=== PATIENT | female | born 1985 | race Caucasian/White ===

== ENCOUNTER 2020-11-18 20:08 | Emergency (ER) | payer MEDICAID, SELFPAY ==
[2020-11-18 20:09] VITALS: BP 128/85; PULSE 65; RESP 15; TEMP 36.4; O2SAT 97; BMI 27.4
[2020-11-18 20:10] VITALS: BP 128/85; PULSE 65; RESP 15; TEMP 36.4; O2SAT 97
--- NOTE | 2020-11-18 20:18 | EDS_ITS ---
HPI HPI - Female History of Present Illness Chief Complaint: Complaint Narrative Narrative: 35-year-old female presenting with dysuria and urinary frequency for about a week. She states she has some nausea that is associated. Patient states that she has a distant history of UTI. She has no concern for STD. She has no vaginal complaints. She does not have any flank pain. Patient denies fever or chills. PFSH PFSH Home Medications buspirone 30 mg PO DAILY 11/18/20 [History Last Taken Unknown] famotidine 40 mg PO DAILY 11/18/20 [History Last Taken Unknown] nitrofurantoin monohyd/m-cryst [Macrobid] 100 mg PO Q12H 7 Days #14 cap 11/18/20 [Rx Last Taken Unknown] ondansetron HCl [Zofran] 4 mg PO Q8H #14 tab 11/18/20 [Rx Last Taken Unknown] phenazopyridine [Pyridium] 200 mg PO BID PRN PRN #10 tab 11/18/20 [Rx Last Taken Unknown] Allergy/AdvReac Type Severity Reaction Status Date / Time Penicillins [PCN] Allergy Hives Verified 11/18/20 20:11 Social History Smoking Status: Smoker, status unknown ROS ROS ED Constitutional Constitutional ED: Denies chills, fever(s) or sweats Eyes Eyes: Denies blurry vision or change in vision ENT ENT ED: Denies ear pain, rhinorrhea or sore throat Cardiovascular Cardiovascular: Denies chest pain, palpitations or racing heartbeat Respiratory/Chest Respiratory/Chest: Denies cough, dyspnea or sputum Gastrointestinal Gastrointestinal: Denies abdominal pain, constipation, diarrhea or vomiting Genitourinary Genitourinary ED: Reports dysuria and urinary frequency; Denies hematuria Musculoskeletal Musculoskeletal: Denies arthralgias, myalgias or neck pain Integumentary Denies abscess, Abrasions or rash Neurologic Neurologic: Denies headache(s), paresthesias or weakness Psychiatric Psychiatric: Denies anxiety, depression, suicidal ideation or suicidal thoughts Endocrine Endocrinology: Denies polydipsia or polyuria EXAM Physical Exam Const Vital Signs: 11/18/20 20:09 11/18/20 20:10 Temperature 97.6 F L 97.6 F L Temperature Source Temporal Temporal Pulse Rate 65 65 Respiratory Rate 15 15 Blood Pressure 128/85 H 128/85 H Blood Pressure Mean 99 99 Pulse Ox 97 97 Oxygen Delivery Method Room Air Room Air Positive well nourished General Appearance ED: NAD HEENT Reports moist mucous membranes Negative for trauma Eyes PERRL and EOMs intact bilaterally Resp normal respiratory effort and clear to auscultation bilaterally Cardio regular rate and regular rhythm GI normal to inspection, nondistended, normoactive bowel sounds no CVA tenderness Neuro oriented x3 Sensorium / Orientation: alert and oriented to person Psych mental status grossly normal Skin no rashes or lesions noted and no wounds MDM MDM MDM Narrative Medical decision making narrative: Patient presented with dysuria and urinary frequency. Patient found to have urinary tract infection on urinalysis. Patient was given Macrobid and Pyridium in the ED. She is given a prescription for this for home. She does not have any nausea currently but I did give her a prescription for Zofran as needed. Patient is amenable to this. She states she is going to follow-up with [facility] as she is already try to establish there. Patient stable discharge home at this time. Impression: 1. UTI Lab Data Attestation: I reviewed the patient's lab results. Labs: Laboratory Results - last 24 hr 11/18/20 20:27 Urine Color Yellow Urine Clarity Cloudy Urine pH 6.5 Ur Specific [place] 1.020 Urine Protein 30 H Urine Glucose (UA) Normal Urine Ketones 5 H Urine Occult Blood 25 H Urine Nitrite Positive H Urine Bilirubin Negative Urine Urobilinogen 4 H Ur Leukocyte Esterase 500 H Urine RBC 0-5 SEEN Urine WBC 50-100 SEEN Ur Squamous Epith Cells 5-10 SEEN Urine Bacteria 3+ Urine Mucus 0 SEEN Urine Test Negative Discharge Plan Triage Chief Complaint: Complaint ED Provider: Kofi Dumont Dx/Rx/DC Orders Instructions: ED CYSTITIS Female Adult Prescriptions: New nitrofurantoin monohyd/m-cryst [Macrobid] 100 mg capsule 100 mg PO Q12H 7 Days Qty: 14 RF: 0 ondansetron HCl [Zofran] 4 mg tablet 4 mg PO Q8H Qty: 14 RF: 0 phenazopyridine [Pyridium] 200 mg tablet 200 mg PO BID PRN PRN (Reason: Pain) Qty: 10 RF: 0 No Action famotidine 40 mg tablet 40 mg PO DAILY RF: 0 buspirone 30 mg tablet 30 mg PO DAILY RF: 0 Primary Care Provider: Care Physician,No Primary Referrals: Care Physician,No Primary [Primary Care Provider] - Disposition Disposition: Home, Self Care
[2020-11-18 20:40] LABS: Mucous, Urine 0 SEEN /hpf (<or=2+)
[2020-11-18 20:43] LABS: Color, Urine Yellow (Yellow); Glucose, Dipstick Normal (Normal); Ketone-Dipstick 5 mg/dl (Negative); Leukocyte Esterase-Dipstick 500 /ul (Negative); Nitrite-Dipstick Positive (Negative); Occult Blood-Urine 25 /ul (Negative); Protein-Dipstick 30 mg/dl (Negative); Urine Bilirubin Dipstick Negative (Negative); Urine Clarity Cloudy (Clear); Urine Urobilinogen 4 mg/dl (Normal); Urine pH 6.5 (5.0 - 8.0)
[2020-11-18 20:55] LABS: Bacteria 3+ /hpf (None Seen); Red Blood Cells-Urine 0-5 SEEN /hpf (0-5); Squamous Epithelial Cells - UA 5-10 SEEN /hpf (5-10); White Blood Cells 50-100 SEEN /hpf (0-5)
[2020-11-18 20:56] LABS: Internal QC Validated? YES +Cl - CLEAR BKGD; Pregnancy, Urine Negative Negative
[2020-11-18] MEDS: Phenazopyridine 95 MG Tablet 190 MG PO (21:01)
[2020-11-18] MEDS: Nitrofurantoin Macrocrystals 100 MG Capsule PO (21:02)
== END 2020-11-18 21:33 | disposition home or self-care (01) ==
PROVIDERS: Emergency Provider Student in an Organized Health Care Education/Training Program
DX: N39.0 Urinary tract infection, site not specified (principal); F17.200 Nicotine dependence, unspecified, uncomplicated; Z79.899 Other long term (current) drug therapy; Z87.440 Personal history of urinary (tract) infections
CPT/HCPCS: 81001; 81025; 87086; 87088; 87186; 99283

== ENCOUNTER 2022-09-30 12:04 | Inpatient (IN) | payer MEDICAID, SELFPAY ==
[2022-09-30 12:04] VITALS: BP 142/106; PULSE 135; RESP 16; TEMP 36.8; O2SAT 100; BMI 16.9
--- NOTE | 2022-09-30 12:45 | PCM.HP.STD ---
HPI - General General Date of Admission: 09/30/22 HPI Narrative DONATO BREEN, is a 37 F who presents to the hospital requesting detox from opiates and crack, her last fentanyl use was last evening. She generally injects. It does not appear that she has any infection and track castro, lab work currently in the ER is pending. Has gone through detox before but never at this facility. She states that she generally injects about 5 g of fentanyl [facility] Medical History (Updated 09/30/22 @ 14:56 by Jennifer Nichols) Anxiety Bipolar disorder Depression Hepatitis Seizure Seizures Home Medications buspirone 30 mg tablet 60 mg PO BID depression 09/30/22 [History Last Taken Unknown] hydroxyzine pamoate 50 mg capsule 100 mg PO Q6H PRN PRN Anxiety 09/30/22 [History Last Taken Unknown] lamotrigine 25 mg tablet 25 mg PO DAILY seizures 09/30/22 [History Last Taken Unknown] olanzapine 5 mg tablet 5 mg PO QHS depression 09/30/22 [History Last Taken Unknown] [id number]-FA 1 mg tablet 1 tab PO DAILY vitamin 09/30/22 [History Last Taken Unknown] topiramate 100 mg tablet 100 mg PO BID seizure 09/30/22 [History Last Taken Unknown] Allergy/AdvReac Type Severity Reaction Status Date / Time buprenorphine [From Suboxone] Allergy Hives Verified 09/30/22 12:06 naloxone [From Suboxone] Allergy Hives Verified 09/30/22 12:06 Penicillins [PCN] Allergy Hives Verified 09/30/22 12:06 Surgical History H/O tubal ligation Social History Smoking Status: Current every day smoker tobacco type: e-cigarettes ROS Constitutional Constitutional: Denies chills, fatigue, fever(s) or malaise Eyes Eyes: Denies blurry vision ENT HEENT: Denies headache(s) or nasal discharge Cardiovascular Cardiovascular: Denies chest pain, dyspnea on exertion or syncope Respiratory/Chest Respiratory/Chest: Denies cough, shortness of breath at rest or shortness of breath with exertion Gastrointestinal Gastrointestinal: Reports nausea; Denies constipation, diarrhea or vomiting Genitourinary Genitourinary: Denies dysuria Neurologic Neurologic: Denies focal weakness, numbness or tremor(s) Psychiatric Psychiatric: Reports anxiety; Denies depression Vital Signs Vital Signs Vital Signs: 09/30/22 12:04 Temperature 98.2 F Temperature Source Temporal Pulse Rate 135 H Respiratory Rate 16 Blood Pressure 142/106 H Blood Pressure Mean 118 Pulse Ox 100 Oxygen Delivery Method Room Air Weight Weight: 105 lb 3 oz Body Mass Index (BMI) 16.9 Physical Exam Narrative General: Alert, Oriented x3, Cooperative, No apparent distress HEENT: Atraumatic, PERRLA, EOMI, Normocephalic, cachectic Oral: Moist Mucosa Neck: Supple, No JVD Lungs: Clear to auscultation, Normal air movement, No rhonchi, No wheeze, No rales Cardiovascular: Regular rate, Regular Rhythm, Normal S1, Normal S2, No murmurs Abdomen: Soft, Non Tender, Non-Distended, No Hepato-splenomegaly Extremities: No edema, Capillary Refill Less than 3 Seconds Skin: Multiple noninfected track castro bilateral upper extremities Musculoskeletal: No Tenderness to Palpation of Joints or Extremities Neurological: Cranial nerves II-XII grossly intact, Motor Exam 5/5 strength throughout, Sensory exam intact to light touch and pain Psych/Mental Status: Anxious, restless Results Lab / Micro Data Result Diagrams: 09/30/22 14:04 09/30/22 14:04 Assessment & Plan Assessment/Plan (1) Opiate withdrawal: (2) Substance abuse: PLAN: Plan 1. Detox from opiates/seizure disorder/anxiety/depression ? Opiate withdrawal protocol ? Continue with her home seizure medications ? Continue with her mental health medications ? Have her follow-up with [facility] DVT: Ambulation 60 minutes was spent on direct patient care as well as chart review and collaboration with colleagues Charges/Coding Visit Charges Inpatient E&M: 16537 Init Hosp L2
[2022-09-30 13:43] LABS: Mucous, Urine 0 SEEN /hpf (<or=2+)
--- NOTE | 2022-09-30 13:48 | EX.ED.SAOD ---
HPI History of Present Illness Chief Complaint: Substance Abuse Informant: patient Onset/Context/Timing Onset: Today Context: Gradual Onset Timing: Continuous Worsened by: Nothing Relieved by: Nothing Associated Symptoms Associated Symptoms: Negative for vomiting*, diarrhea*, fever*, rash*, seizure, tremor, palpatations, change in mental status, trauma, suicidal ideation or homicidal ideation Narrative Narrative: Patient presents requesting detox from fentanyl and crack cocaine. Patient states her last use was last night. Patient states she uses approximately 5 g of fentanyl per day. Patient states she has been through detox at a different facility in April but started using again shortly after she was discharged from that facility. Patient denies any fevers or chills. Patient denies any nausea or vomiting. Patient denies any seizures or tremors. Patient denies any suicidal or homicidal ideations. [facility] Medical History Seizure Home Medications NK 09/30/22 [History Last Taken Unknown] Allergy/AdvReac Type Severity Reaction Status Date / Time buprenorphine [From Suboxone] Allergy Hives Verified 09/30/22 12:06 naloxone [From Suboxone] Allergy Hives Verified 09/30/22 12:06 Penicillins [PCN] Allergy Hives Verified 09/30/22 12:06 Surgical History H/O tubal ligation Social History Smoking Status: Current every day smoker tobacco type: e-cigarettes ROS ROS ED Constitutional Constitutional ED: Reports sweats; Denies chills or fever(s) Eyes Eyes: Denies blurry vision or change in vision ENT ENT ED: Denies rhinorrhea or sore throat Cardiovascular Cardiovascular: Denies chest pain or palpitations Respiratory/Chest Respiratory/Chest: Denies cough or dyspnea Gastrointestinal Gastrointestinal: Reports nausea; Denies vomiting Genitourinary Genitourinary ED: Denies dysuria or hematuria Musculoskeletal Musculoskeletal: Reports back pain; Denies neck pain Integumentary Denies abscess or rash Neurologic Neurologic: Denies headache(s) or weakness Allergic/Immunologic Allergic/Immunologic ED: Denies mouth swelling or urticaria EXAM Physical Exam Const Vital Signs: 06/09/23 12:04 Temperature 98.2 F Temperature Source Temporal Pulse Rate 135 H Respiratory Rate 16 Blood Pressure 142/106 H Blood Pressure Mean 118 Pulse Ox 100 Oxygen Delivery Method Room Air Positive well nourished and well developed General Appearance ED: well developed HEENT Reports moist mucous membranes Neck supple and no JVD Resp normal respiratory effort and clear to auscultation bilaterally Cardio regular rate, regular rhythm and no murmurs GI normal to inspection, nondistended, normoactive bowel sounds and non-tender Palpation: soft Extremity normal to inspection General Extremety ED: Negative for edema or tenderness General Extremity: Negative for edema Neuro oriented x3, CN's II-XII intact bilaterally and no sensory deficits noted Sensorium / Orientation: alert Motor Exam: strength 5/5 throughout Psych mental status grossly normal Skin Skin Narrative: There are multiple track castro on the forearms and antecubital areas bilaterally. There is some mild erythema. There is no evidence of any abscess. There is no discharge or drainage. MDM MDM MDM Narrative Medical decision making narrative: Patient was advised of the need for hospitalization for detox. Patient is agreeable with this. Case was discussed with the hospitalist. He will admit the patient to his service. Basic labs will be obtained for medical clearance. CBC will be obtained to assess for leukocytosis and anemia. Basic metabolic profile will be obtained to assess for electrolyte abnormality and renal function. Urine tox screen will be obtained to assess for substance abuse. Serum alcohol level will be obtained to assess for alcohol intoxication. Serum hCG will be obtained to assess for . Discharge Plan Triage Chief Complaint: Substance Abuse ED Provider: Miko Leblanc Dx/Rx/DC Orders Clinical Impression: Opiate withdrawal, Substance abuse Primary Care Provider: Care Physician,No Primary Disposition Disposition: Acute Care Hospital [facility]
[2022-09-30 13:57] LABS: Internal QC Validated? YES +Cl - CLEAR BKGD; Pregnancy, Urine Negative Negative
[2022-09-30 13:58] LABS: Color, Urine Yellow (Yellow); Glucose, Dipstick Normal (Normal); Ketone-Dipstick 5 mg/dl (Negative); Leukocyte Esterase-Dipstick 500 /ul (Negative); Nitrite-Dipstick Negative (Negative); Occult Blood-Urine 10 /ul (Negative); Protein-Dipstick 30 mg/dl (Negative); Urine Bilirubin Dipstick Negative (Negative); Urine Clarity Clear (Clear); Urine Urobilinogen 1 mg/dl (Normal); Urine pH 6.5 (5.0 - 8.0)
[2022-09-30 13:59] LABS: Bacteria 3+ /hpf (None Seen); Red Blood Cells-Urine 0-5 SEEN /hpf (0-5); Squamous Epithelial Cells - UA 5-10 SEEN /hpf (5-10); White Blood Cells 50-100 SEEN /hpf (0-5)
[2022-09-30 14:06] LABS: Amphetamine Urine VISTA NEGATIVE (<1000 ng/mL); Barbiturate Urine VISTA NEGATIVE (< 200 ng/mL); Benzodiazepine Urine VISTA NEGATIVE (< 200 ng/mL); Cocaine Urine VISTA POSITIVE (< 300 ng/mL); Ecstacy Urine VISTA NEGATIVE (< 500 ng/mL); Methadone Urine VISTA POSITIVE (< 300 ng/mL); PCP Urine VISTA NEGATIVE (< 25 ng/mL); THC Urine VISTA NEGATIVE (< 50 ng/mL); Vista UDS pH Range 6
[2022-09-30 14:13] LABS: Absolute Neutrophil Count 4.9 X10^3/uL (2.0-7.7); Basophil# 0.05 X10^3/uL; Basophil% 0.7 % (0-1); Eosinophil# 0.06 X10^3/uL; Eosinophils% 0.8 % (0-5); Hematocrit 37.4 % (37-47); Hemoglobin 12.3 g/dL (12.0-15.0); Lymphocyte % 24.3 % (19-41); Mean Corp Hgb Conc 32.9 g/dL (32-36); Mean Corpuscular Hgb 29.4 pg (27.0-32.0); Mean Corpuscular Volume 89.3 fL (81-99); Mean Platelet Vol. 11.3 fl (6.2-12.0); Monocyte# 0.63 X10^3/uL; Monocyte% 8.5 % (0-10); NRBC Flagged by Analyzer 0 % (0-5); Neutrophil # 4.85 X10^3/uL (2.7-7.7); Neutrophil % 65.6 % (47-70); Platelet Count 165 K/mm3 (150-450); RBC Distribution Width CV 14.5 % (11.6-14.6); RBC Distribution Width SD 46.7 fl (35.1-43.9); Red Blood Count 4.19 M/mm3 (4.2-5.4); White Blood Count 7.4 K/mm3 (4.4-11.0)
[2022-09-30] MEDS: Smz/Tmp Ds Tablet 1 TABLET PO (14:23)
[2022-09-30 14:26] VITALS: BP 123/81; PULSE 98; RESP 18; TEMP 36.7
[2022-09-30 14:31] LABS: Anion Gap 9 (5-15); BUN 16 mg/dL (7-18); BUN/Creat Ratio 19.5 RATIO (10-20); Calcium,Total 8.7 mg/dL (8.5-10.1); Chloride 108 mmol/L (98-107); Creatinine, Serum 0.82 mg/dL (0.55-1.02); EST Glomerular Filtration Rate 83 mL/min (>60); Est Glom Filt Rate - Afr Amer 100 mL/min (>60); Estimated Creatinine Clearance 70.06 ml/min; Glucose 83 mg/dL (74-106); Sodium Level 141 mmol/L (136-145)
[2022-09-30 14:51] VITALS: BMI 17.4
[2022-09-30 14:58] VITALS: BP 125/86; PULSE 70; RESP 16; TEMP 36.7; O2SAT 100
[2022-09-30 15:41] VITALS: BP 125/86; PULSE 70; RESP 16; TEMP 36.7; O2SAT 100
[2022-09-30] MEDS: Buprenorphine HCl 2 MG TAB.SUBL SL (17:18)
[2022-09-30] MEDS: Ondansetron 8 MG Tablet PO (18:54)
[2022-09-30] MEDS: Gabapentin 300 MG Capsule PO (18:54)
[2022-09-30] MEDS: hydrOXYzine PAM 25 MG Capsule 50 MG PO (18:54)
[2022-09-30] MEDS: Methocarbamol 750 MG Tablet 1500 MG PO (20:03)
[2022-09-30] MEDS: Dicyclomine 10 MG Capsule 20 MG PO (20:03)
[2022-09-30] MEDS: cloNIDine HCl 0.1 MG Tablet PO (20:04)
[2022-09-30 20:20] VITALS: BP 138/90; PULSE 81; RESP 18; TEMP 36.6; O2SAT 100
[2022-10-01] MEDS: Topiramate 100 MG Tablet PO ×3 (00:06→21:30)
[2022-10-01] MEDS: traZODone 100 MG Tablet PO (00:06)
[2022-10-01] MEDS: OLANZapine 5 MG/TAB TAB.RAPDIS PO ×2 (00:06→21:30)
[2022-10-01] MEDS: busPIRone 15 MG TABLET 60 MG PO ×3 (00:07→21:30)
[2022-10-01] MEDS: Buprenorphine HCl 2 MG TAB.SUBL SL ×3 (01:44→16:45)
[2022-10-01 05:56] VITALS: BP 144/98; PULSE 65; RESP 16; TEMP 37.2; O2SAT 99
[2022-10-01] MEDS: Methocarbamol 750 MG Tablet 1500 MG PO ×2 (05:59→12:21)
[2022-10-01] MEDS: Dicyclomine 10 MG Capsule 20 MG PO (05:59)
[2022-10-01] MEDS: Gabapentin 300 MG Capsule PO ×2 (06:00→16:45)
[2022-10-01] MEDS: cloNIDine HCl 0.1 MG Tablet PO ×2 (06:00→16:46)
--- NOTE | 2022-10-01 08:56 | CASEMGMT ---
Social Work SW called Treatment Navigator with [facility] to see pt. She does already have a plan to go to [facility] after her admit and discharge from here. WILIAM Shah
[2022-10-01] MEDS: lamoTRIgine 25 MG Tablet PO (08:57)
[2022-10-01 09:01] VITALS: BP 156/92; PULSE 58; PULSE 60; RESP 16; TEMP 37.6; O2SAT 100
--- NOTE | 2022-10-01 09:45 | PN.HOSP_ITS ---
Subjective Subjective Cina score of 8 today, she was fairly agitated overnight but resting comfortably this morning Objective Data Objective Data Vital Signs: Vital Signs Temp Pulse Resp BP Pulse Ox O2 Del Method 99.6 F H 60 16 156/92 H 100 Room Air 10/01/22 09:01 10/01/22 09:01 10/01/22 09:01 10/01/22 09:01 10/01/22 09:01 10/01/22 09:01 Oxygen Delivery Method Room Air Weight: 108 lb Body Mass Index (BMI) 17.4 Intake & Output: Intake and Output for Last 24 Hours 09/30/22 10/01/22 10/02/22 03:59 03:59 03:59 Intake Total 200 / 200 Balance 200 / 200 Medical Nutrition Assessment Dietitian: Malnutrition Criteria Met Start: 09/30/22 15: 43 Freq: Status: Active Protocol: Document 09/30/22 15:43 WINDY (Rec: 09/30/22 15:44 [email or web address] [id number]) Nutrition Malnutrition Evidence of Malnutrition Exists Yes Malnutrition (severe): Social/Behavioral/ Environmental Evidenced By Suboptimal Energy Intake ( Severe),Weight Loss (Severe), Physical Changes (Severe) Clinical Problem Chronic Disease or Condition Related Malnutrition Etiology severe related to drug use/ abuse and inadequate energy intake Signs/Symptoms as evidenced by 30.5% unintended wt loss and po intake <75% of estimated nutritional needs; pt w/ fat/ muscle loss throughout body Status Active Problem Recommendation Dietitian Recommendations/Changes Will continue liberal regular diet d/t signs and symptoms of malnutrition. Will order 8 oz chocolate CIB w/ meals Allow snacks 3x/day as tolerated Monitor for signs/symptoms of refeeding syndrome. Lab / Micro Data Result Diagrams: 09/30/22 14:04 09/30/22 14:04 Labs: Laboratory Results - last 24 hr 09/30/22 13:37: Urine Color Yellow, Urine Clarity Clear, Urine pH 6.5, Ur Spec ific [place] 1.020, Urine Protein 30 H, Urine Glucose (UA) Normal, Urine Ketones 5 H, Urine Occult Blood 10 H, Urine Nitrite Negative, Urine Bilirubin Negative, Urine Urobilinogen 1 H, Ur Leukocyte Esterase 500 H, Urine RBC 0-5 SEEN, Urine WBC 50-100 SEEN, Ur Squamous Epith Cells 5-10 SEEN, Urine Bacteria 3+, Urine Mucus 0 SEEN, Urine Test Negative 09/30/22 13:37: Urine Opiates Screen POSITIVE H, Urine Methadone Screen POSITIVE H, Ur Barbiturates Screen NEGATIVE, Ur Phencyclidine Scrn NEGATIVE, Ur Amp hetamines Screen NEGATIVE, MDMA (Ecstasy) Screen NEGATIVE, U Benzodiazepines Scrn NEGATIVE, Urine Cocaine Screen POSITIVE H, U Cannabinoids Screen NEGATIVE, Ur Drug Screen Comment 09/30/22 14:04: WBC 7.4, RBC 4.19 L, Hgb 12.3, Hct 37.4, MCV 89.3, MCH 29.4, MCHC 32.9, RDW Std Deviation 46.7 H, RDW Coeff of Bg 14.5, Plt Count 165, MPV 11.3, Immature Gran % (Auto) 0.100, Neut % (Auto) 65.6, Lymph % (Auto) 24.3, [place] % (Auto) 8.5, Eos % (Auto) 0.8, Baso % (Auto) 0.7, Absolute Neuts (auto) 4.9, Absolute Lymphs (auto) 1.80, Nucleated RBC % 0 09/30/22 14:04: Sodium 141, Potassium 3.0 L, Chloride 108 H, Carbon Dioxide 24.0, Anion Gap 9, BUN 16, Creatinine 0.82, Estim Creat Clear Calc 70.06, Est GFR (MDRD) Af Amer 100, Est GFR (MDRD) Non-Af 83, BUN/Creatinine Ratio 19.5, Glucose 83, Calcium 8.7 09/30/22 14:04: Ethyl Alcohol 6.0 Micro: Microbiology 09/30/22 13:37 Urine, Clean Catch Urine Culture - Preliminary Gram Positive Cocci Physical Exam Narrative General: Alert, Oriented x3, Cooperative, No apparent distress HEENT: Atraumatic, PERRLA, EOMI, Normocephalic, cachectic Oral: Moist Mucosa Neck: Supple, No JVD Lungs: Clear to auscultation, Normal air movement, No rhonchi, No wheeze, No rales Cardiovascular: Regular rate, Regular Rhythm, Normal S1, Normal S2, No murmurs Abdomen: Soft, Non Tender, Non-Distended, No Hepato-splenomegaly Extremities: No edema, Capillary Refill Less than 3 Seconds Skin: Multiple noninfected track castro bilateral upper extremities Musculoskeletal: No Tenderness to Palpation of Joints or Extremities Neurological: Cranial nerves II-XII grossly intact, Motor Exam 5/5 strength throughout, Sensory exam intact to light touch and pain Psych/Mental Status: Flat affect Assessment & Plan Assessment/Plan (1) Opiate withdrawal: (2) Substance abuse: PLAN: Plan 1. Detox from opiates/seizure disorder/anxiety/depression ? Opiate withdrawal protocol ? Continue with her home seizure medications ? Continue with her mental health medications ? Have her follow-up with [facility] ? We will check HIV and hepatitis panel 2. UA obtained in the ER obtained for possible UTI however she is asymptomatic will await cultures, she was given a single dose of Bactrim DVT: Ambulation Charges/Coding Visit Charges Inpatient E&M: 86612 Subs Hosp L2
[2022-10-01] MEDS: hydrOXYzine PAM 25 MG Capsule 50 MG PO (12:21)
[2022-10-01 12:31] VITALS: BP 136/79; PULSE 53; RESP 16; TEMP 36.8; O2SAT 100
--- NOTE | 2022-10-01 14:44 | ADDICTION ---
Pt was met with to complete ASAM, MT status, AUDIT, DUDIT, D/C Plan, and RAMP assessment. Pt appears to meet ASAM criteria for a 4.0LoC and pt appears to be at extremely high risk of relapse and continued problem potential. Pt reports that she experienced recent trauma of finding her significant other overdosed and on the floor a few months ago. Pt would benefit from following up with a direct admit to 3.5LoC and referral for psychiatric services. Pt reports hx of comorbid anxiety, depression, and PTSD dxs with hx of medication noncompliance d/t BENNY. Pt reports that she is motivated to seek residential tx after detox and she reports current homelessness. Pt is scheduled to admit directly to [facility] upon discharge. [facility] to transport pt to [facility]. Contact Anastasia at [facility] [phone] to schedule direct admit and transport once pt is medically stable to reduce LoC.
[2022-10-01 16:50] VITALS: BP 140/92; PULSE 51; RESP 16; TEMP 37.3; O2SAT 100
[2022-10-01 21:26] VITALS: BP 153/98; PULSE 50; RESP 16; TEMP 37; O2SAT 99
[2022-10-02] MEDS: Buprenorphine HCl 2 MG TAB.SUBL SL ×3 (01:36→16:30)
[2022-10-02] MEDS: Gabapentin 300 MG Capsule PO ×3 (06:17→20:27)
[2022-10-02] MEDS: cloNIDine HCl 0.1 MG Tablet PO ×3 (06:17→20:27)
[2022-10-02] MEDS: Methocarbamol 750 MG Tablet 1500 MG PO ×3 (06:17→20:27)
[2022-10-02 06:46] VITALS: BP 161/106; PULSE 54; RESP 16; TEMP 36.8; O2SAT 98
[2022-10-02] MEDS: lamoTRIgine 25 MG Tablet PO (09:06)
[2022-10-02] MEDS: busPIRone 15 MG TABLET 60 MG PO ×2 (09:07→20:25)
[2022-10-02] MEDS: Topiramate 100 MG Tablet PO ×2 (09:08→20:25)
--- NOTE | 2022-10-02 09:33 | PCM.PN.HOSP ---
Subjective Subjective No issues overnight, Cina score of 3 Objective Data Objective Data Vital Signs: Vital Signs Temp Pulse Resp BP Pulse Ox O2 Del Method 98.2 F 54 L 16 161/106 H 98 Room Air 10/02/22 06:46 10/02/22 06:46 10/02/22 06:46 10/02/22 06:46 10/02/22 06:46 10/02/22 06:46 Oxygen Delivery Method Room Air Weight: 108 lb Body Mass Index (BMI) 17.4 Intake & Output: Intake and Output for Last 24 Hours 10/01/22 10/02/22 10/03/22 03:59 03:59 03:59 Intake Total 200 / 200 1500 / 1500 Balance 200 / 200 1500 / 1500 Medical Nutrition Assessment Dietitian: Malnutrition Criteria Met Start: 09/30/22 15:43 Freq: Status: Active Protocol: Document 09/30/22 15:43 WINDY (Rec: 09/30/22 15:44 [email or web address] [id number]) Nutrition Malnutrition Evidence of Malnutrition Exists Yes Malnutrition (severe): Social/Behavioral/ Environmental Evidenced By Suboptimal Energy Intake ( Severe),Weight Loss (Severe), Physical Changes (Severe) Clinical Problem Chronic Disease or Condition Related Malnutrition Etiology severe related to drug use/ abuse and inadequate energy intake Signs/Symptoms as evidenced by 30.5% unintended wt loss and po intake <75% of estimated nutritional needs; pt w/ fat/ muscle loss throughout body Status Active Problem Recommendation Dietitian Recommendations/Changes Will continue liberal regular diet d/t signs and symptoms of malnutrition. Will order 8 oz chocolate CIB w/ meals Allow snacks 3x/day as tolerated Monitor for signs/symptoms of refeeding syndrome. Lab / Micro Data Result Diagrams: 09/30/22 14:04 09/30/22 14:04 Micro: Microbiology 09/30/22 13:37 Urine, Clean Catch Urine Culture - Final Staphylococcus epidermidis Physical Exam Narrative General: Alert, Oriented x3, Cooperative, No apparent distress HEENT: Atraumatic, PERRLA, EOMI, Normocephalic, cachectic Oral: Moist Mucosa Neck: Supple, No JVD Lungs: Clear to auscultation, Normal air movement, No rhonchi, No wheeze, No rales Cardiovascular: Regular rate, Regular Rhythm, Normal S1, Normal S2, No murmurs Abdomen: Soft, Non Tender, Non-Distended, No Hepato-splenomegaly Extremities: No edema, Capillary Refill Less than 3 Seconds Skin: Multiple noninfected track castro bilateral upper extremities Musculoskeletal: No Tenderness to Palpation of Joints or Extremities Neurological: Cranial nerves II-XII grossly intact, Motor Exam 5/5 strength throughout, Sensory exam intact to light touch and pain Psych/Mental Status: Flat affect Assessment & Plan Assessment/Plan (1) Opiate withdrawal: (2) Substance abuse: PLAN: Plan 1. Detox from opiates/seizure disorder/anxiety/depression ? Opiate withdrawal protocol ? Continue with her home seizure medications ? Continue with her mental health medications ? Plan for inpatient admission for rehab upon discharge 2. UA obtained in the ER obtained for possible UTI however culture data shows Staph epidermidis at 25-50,000 CFU's, will not treat DVT: Ambulation Charges/Coding Visit Charges Inpatient E&M: 33098 Subs Hosp L2
[2022-10-02] MEDS: hydrOXYzine PAM 25 MG Capsule 50 MG PO ×2 (09:39→20:27)
[2022-10-02 11:00] VITALS: BP 147/95; PULSE 55; RESP 16; TEMP 36.6; O2SAT 99
[2022-10-02 17:00] VITALS: BP 137/92; PULSE 63; RESP 16; TEMP 36.7; O2SAT 99
[2022-10-02] MEDS: OLANZapine 5 MG/TAB TAB.RAPDIS PO (20:26)
[2022-10-02] MEDS: traZODone 100 MG Tablet PO (20:27)
[2022-10-02 22:00] VITALS: BP 134/94; PULSE 73; RESP 16; TEMP 36.8; O2SAT 100
[2022-10-03] MEDS: cloNIDine HCl 0.1 MG Tablet PO (05:02)
[2022-10-03] MEDS: Buprenorphine HCl 2 MG TAB.SUBL SL (05:02)
[2022-10-03 05:28] VITALS: BP 131/68; PULSE 70; RESP 18; TEMP 36.7; O2SAT 96
--- NOTE | 2022-10-03 08:05 | PCM.PN.HOSP ---
Reason for Visit Reason for Visit: Diagnoses Opioid use, unspecified with withdrawal (09/30/22) Other psychoactive substance abuse, uncomplicated (09/30/22) Objective Data Objective Data Vital Signs: Vital Signs Temp Pulse Resp BP Pulse Ox O2 Del Method 98.0 F 70 18 131/68 H 96 Room Air 10/03/22 05:28 10/03/22 05:28 10/03/22 05:28 10/03/22 05:28 10/03/22 05:28 10/03/22 05:28 Oxygen Delivery Method Room Air Weight: 48.988 kg Body Mass Index (BMI) 17.4 Intake & Output: Intake and Output for Last 24 Hours 10/01/22 10/02/22 10/03/22 23:59 23:59 23:59 Intake Total 1500 / 1500 600 / 600 300 / 300 Balance 1500 / 1500 600 / 600 300 / 300 Medical Nutrition Assessment Dietitian: Malnutrition Criteria Met Start: 09/30/22 15:43 Freq: Status: Active Protocol: Document 09/30/22 15:43 WINDY (Rec: 09/30/22 15:44 [email or web address] [id number]) Nutrition Malnutrition Evidence of Malnutrition Exists Yes Malnutrition (severe): Social/Behavioral/ Environmental Evidenced By Suboptimal Energy Intake ( Severe),Weight Loss (Severe), Physical Changes (Severe) Clinical Problem Chronic Disease or Condition Related Malnutrition Etiology severe related to drug use/ abuse and inadequate energy intake Signs/Symptoms as evidenced by 30.5% unintended wt loss and po intake <75% of estimated nutritional needs; pt w/ fat/ muscle loss throughout body Status Active Problem Recommendation Dietitian Recommendations/Changes Will continue liberal regular diet d/t signs and symptoms of malnutrition. Will order 8 oz chocolate CIB w/ meals Allow snacks 3x/day as tolerated Monitor for signs/symptoms of refeeding syndrome. Lab / Micro Data Result Diagrams: 09/30/22 14:04 09/30/22 14:04 Micro: Microbiology 09/30/22 13:37 Urine, Clean Catch Urine Culture - Final Staphylococcus epidermidis Physical Exam Narrative General: Alert, Oriented x3, Cooperative, No apparent distress HEENT: Atraumatic, PERRLA, EOMI, Normocephalic, cachectic Oral: Moist Mucosa Neck: Supple, No JVD Lungs: Clear to auscultation, Normal air movement, No rhonchi, No wheeze, No rales Cardiovascular: Regular rate, Regular Rhythm, Normal S1, Normal S2, No murmurs Abdomen: Soft, Non Tender, Non-Distended, No Hepato-splenomegaly Extremities: No edema, Capillary Refill Less than 3 Seconds Skin: Multiple noninfected track castro bilateral upper extremities Musculoskeletal: No Tenderness to Palpation of Joints or Extremities Neurological: Cranial nerves II-XII grossly intact, Motor Exam 5/5 strength throughout, Sensory exam intact to light touch and pain Psych/Mental Status: Flat affect Assessment & Plan Assessment/Plan (1) Opiate withdrawal: (2) Substance abuse: PLAN: Plan 1. Detox from opiates/seizure disorder/anxiety/depression ? Opiate withdrawal protocol ? Continue with her home seizure medications ? Continue with her mental health medications ? Plan for inpatient admission for rehab upon discharge 2. UA obtained in the ER obtained for possible UTI however culture data shows Staph epidermidis at 25-50,000 CFU's, will not treat DVT: Ambulation
[2022-10-03] MEDS: lamoTRIgine 25 MG Tablet PO (10:04)
[2022-10-03] MEDS: busPIRone 15 MG TABLET 60 MG PO (10:04)
[2022-10-03] MEDS: Topiramate 100 MG Tablet PO (10:05)
--- NOTE | 2022-10-03 10:19 | PHA.DC.MR ---
Pharmacy Service has performed discharge medication reconciliation for this patient. The patient's discharge medication list was reviewed for discrepancies and discrepancies were resolved. Home Medications buspirone 30 mg tablet 60 mg PO BID depression 09/30/22 hydroxyzine pamoate 50 mg capsule 100 mg PO Q6H PRN PRN Anxiety 09/30/22 lamotrigine 25 mg tablet 25 mg PO DAILY seizures 09/30/22 olanzapine 5 mg tablet 5 mg PO QHS depression 09/30/22 [id number] 1 mg tablet 1 tab PO DAILY vitamin 09/30/22 topiramate 100 mg tablet 100 mg PO BID seizure 09/30/22
[2022-10-03 10:37] VITALS: BP 123/66; PULSE 92; RESP 20; TEMP 36.6; O2SAT 98
--- NOTE | 2022-10-03 11:22 | PCM.DC.SUM ---
Providers Date of Admission: 09/30/22 Date of Discharge: 10/03/22 Primary Care Physician: No Primary Care Phys Reason For Visit: OPIATE DETOX Diagnosis Discharge Diagnosis (1) Opiate withdrawal: Status: Acute Code(s): F11.93 - Opioid use, unspecified with withdrawal (2) Substance abuse: Status: Acute Code(s): F19.10 - Other psychoactive substance abuse, uncomplicated Medications at Discharge Home Medications buspirone 30 mg tablet 60 mg PO BID depression 09/30/22 hydroxyzine pamoate 50 mg capsule 100 mg PO Q6H PRN PRN Anxiety 09/30/22 lamotrigine 25 mg tablet 25 mg PO DAILY seizures 09/30/22 olanzapine 5 mg tablet 5 mg PO QHS depression 09/30/22 [id number] 1 mg tablet 1 tab PO DAILY vitamin 09/30/22 topiramate 100 mg tablet 100 mg PO BID seizure 09/30/22 Hospital Course Summary of Care Provided Minutes Spent on Discharge: 35 Hospital Course: Patient is a 37-year-old lady admitted with acute opioid withdrawal 1. 1. Acute opioid withdrawal - Patient has been admitted to regular nursing floor, managed buprenorphine taper along with other adjunctive medications for medical stabilization 2. Seizure disorder ? Patient is on topiramate as well as lamotrigine did continue 3. Depression with anxiety per history 4. DVT prophylaxis ? Low risk did encourage early ambulation Physical Exam Narrative GENERAL: cooperative HEENT: Atraumatic; normocephalic EYES; Anicteric, Normal Conjunctiva NECK; supple, normal thyroid, RESPIRATORY: Diminished to auscultation CARDIOVASCULAR: Regular S1 S2, GI: soft, normoactive bowel sounds, : No Renal angle tenderness; EXTREMITIES: No edema, no clubbing, MUSCULOSKELETAL: no muscle wasting NEURO: Awake; no lateralizing signs. SKIN: No Rash PSYCH; Flat affect Weight / BMI Weight Weight: 48.988 kg Body Mass Index (BMI) 17.4 ABG / Lab / Microbiology Data Result Diagrams: 09/30/22 14:04 09/30/22 14:04 Microbiology: Microbiology 09/30/22 13:37 Urine, Clean Catch Urine Culture - Final Staphylococcus epidermidis D/C Instructions Discharge Diet: No restrictions Discharge Activity: Return to Normal Activity Call your doctor if you observe: Fever of 101 or Higher, Shortness of breath, Fainting spells and Chest pain Meaningful Use Info Meaningful Use Diagnoses (Choose all that apply): None applicable Discharge Plan Admission Admit Date/Time: 09/30/22 12:43 Attending Provider: Jasmeet Huizar Primary Care Provider: Care Physician,No Primary Consulting Providers: Milton Moser Discharge Orders/Prescriptions Prescriptions: Continued olanzapine 5 mg Tablet 5 mg PO QHS hydroxyzine pamoate 50 mg Capsule 100 mg PO Q6H PRN PRN (Reason: Anxiety) lamotrigine 25 mg Tablet 25 mg PO DAILY buspirone 30 mg Tablet 60 mg PO BID [id number] 1 mg Tablet 1 tab PO DAILY topiramate 100 mg Tablet 100 mg PO BID Referrals / Follow Up: Care Physician,No Primary [Primary Care Provider] - Disposition Disposition (needs filled in before D/C Order can be placed): Home, Self Care Charges/Coding Visit Charges Inpatient E&M: 37412 Disch Hosp >30min
== END 2022-10-03 11:19 | disposition home or self-care (01) | DRG 773 ==
LOC: ED 12:42 → MS3 13:19
PROVIDERS: Admitting Provider Family Medicine; Emergency Provider Emergency Medicine; Visit Provider Internal Medicine
DX: F11.23 Opioid dependence with withdrawal (principal); E43 Unspecified severe protein-calorie malnutrition; F31.9 Bipolar disorder, unspecified; G40.909 Epilepsy, unspecified, not intractable, without status epilepticus; F17.290 Nicotine dependence, other tobacco product, uncomplicated; F41.9 Anxiety disorder, unspecified; B95.7 Other staphylococcus as the cause of diseases classified elsewhere; N39.0 Urinary tract infection, site not specified; Z68.1 Body mass index [BMI] 19.9 or less, adult; Z79.899 Other long term (current) drug therapy
CPT/HCPCS: 36415; 80048; 80307; 81001; 81025; 82077; 85025; 87077; 87086; 87088; 87186; 97802; 99283